=== PATIENT | male | born 1985 | race Hispanic/Latino ===

== ENCOUNTER 2018-03-02 22:20 | Emergency (ER) | payer MEDICARE ==
[2018-03-02] MEDS ORDERED: ACETAMINOPHEN EXTRA STRENGTH 500 MG TABLET ONE (22:51)
== END 2018-03-02 22:58 | disposition home or self-care (01) ==
LOC: EDH 22:20
DX: R51 Headache (principal); E78.5 Hyperlipidemia, unspecified; Z72.0 Tobacco use
CPT/HCPCS: 99282